=== PATIENT | male | born 1995 ===

== ENCOUNTER 2016-05-22 09:29 | Emergency (ER) | payer SELFPAY ==
[2016-05-22 09:30] VITALS: BMI 24.1
[2016-05-22 09:38] VITALS: BP 131/67; PULSE 57; RESP 18; TEMP 97.7; O2SAT 98
--- NOTE | 2016-05-22 10:07 | ED PDOC ---
HPI: General Adult Time Seen by Provider: 05/22/16 10:05 Chief Complaint (Nursing): Chest Pain Additional Complaint(s): 21 y/o M c no PMHx p/w R sided thoracic pain this morning when getting up from bed. Pain was sharp and severe, like a muscle spasm, worse with deep inspiration or movement. He lied back down, and when he got up again, he did not have any pain whatsoever but he decided to come to the ER. He denies any fever, rash, dyspnea, vomiting, hematuria, injury. Past Medical History Vital Signs: Last Vital Signs Temp 97.7 F 05/22/16 09:36 Pulse 57 L 05/22/16 09:36 Resp 18 05/22/16 09:36 BP 131/67 05/22/16 09:36 Pulse Ox 98 05/22/16 10:19 - Medical History PMH: Denies: Chronic Kidney Disease - Family History Family History: States: Unknown Family Hx - Home Medications Home Medications: Ambulatory Orders Medication Instructions Recorded Famotidine [Pepcid] 20 mg PO BID #28 tab 11/25/15 Amoxicillin/Clavulanate [Augmentin 1 tab PO BID #14 tab 04/17/16 875 MG-125 MG] Ibuprofen [Motrin] 600 mg PO Q6 PRN #15 tab 04/17/16 Naproxen [Naprosyn] 500 mg PO BID PRN #15 tablet 04/24/16 Famotidine [Pepcid] 1 tab PO BID #10 tab 04/26/16 Ondansetron ODT [Zofran ODT] 1 tab PO Q8 PRN #24 odt 04/26/16 Azithromycin [Zithromax] 250 mg PO DAILY 5 Days 05/01/16 Ibuprofen [Motrin] 400 mg PO Q6 #30 tab 05/15/16 - Allergies Allergies/Adverse Reactions: Allergies Allergy/AdvReac Type Severity Reaction Status Date / Time No Known Allergies Allergy Verified 04/26/16 11:16 Review of Systems ROS Statement: Except As Marked, All Systems Reviewed And Found Negative Constitutional: Negative for: Fever Respiratory: Negative for: Shortness of Breath Physical Exam - Physical Exam Comments: Constitutional: No acute distress. Head: Normocephalic. Atraumatic. Eyes: PERRL. EOMI. ENT: Moist mucous membranes. Neck: Supple. FROM Cardiovascular: Regular rate. Radial pulses 2+ bilaterally. Chest: No tenderness. Respiratory: Clear to auscultation bilaterally. GI: Soft. Nontender. Nondistended. No rebound or guarding. Back: No CVA tenderness. Musculoskeletal: No tenderness or swelling of extremities. Skin: No rash. Neurologic: Alert, no focal deficit. - ECG O2 Sat by Pulse Oximetry: 98 Medical Decision Making Medical Decision Making: Likely muscular spasm and no other signs or symptoms then or currently to suggest zoster, cholecystitis, pneumothorax, nephrolithiasis, PE. Will discharge home but instructed to return to ER for any worsening symptoms including rash, fever, vomiting, dyspnea, hematuria, or any other problem. Disposition - Clinical Impression Clinical Impression: Muscle spasm - Patient ED Disposition Is Patient to be Admitted: No - Disposition Disposition: Routine/Home Disposition Time: 10:06 Condition: STABLE Instructions: Muscle Spasm (ED) Forms: [facility] ED School/Work Excuse
== END 2016-05-22 10:11 | disposition home or self-care (01) ==
LOC: H.ER 09:29
DX: M62.838 Other muscle spasm (principal)

== ENCOUNTER 2016-08-17 21:58 | Emergency (ER) | payer SELFPAY ==
[2016-08-17 22:01] VITALS: BMI 26.6
[2016-08-17 22:03] VITALS: PULSE 72; RESP 16; TEMP 97.9; O2SAT 98
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
[2016-08-17 22:26] VITALS: BP 110/64
== END 2016-08-17 22:38 | disposition home or self-care (01) ==
LOC: H.ER 21:58
DX: M25.511 Pain in right shoulder (principal); M54.9 Dorsalgia, unspecified; V43.52XA Car driver injured in collision with other type car in traffic accident, initial encounter; Y92.410 Unspecified street and highway as the place of occurrence of the external cause

== ENCOUNTER 2016-11-15 05:05 | Emergency (ER) | payer SELFPAY ==
[2016-11-15 05:14] VITALS: BMI 27.4
[2016-11-15 05:17] VITALS: PULSE 60; RESP 16; TEMP 98.7; O2SAT 100
--- NOTE | 2016-11-15 05:21 | ED PDOC ---
Lower Extremity Pain/Injury Time Seen by Provider: 11/15/16 05:20 Chief Complaint (Nursing): Lower Extremity Problem/Injury Chief Complaint (Provider): right toe injury History Per: Patient (21 y/o male here with right toe injury that occurred yesterday when he dropped box on foot. States he noted ecchymosis yesterday that now resolved. Notes pain base of foot currently. Has h/o toe fx in this foot.) Past Medical History Reviewed: Historical Data, Nursing Documentation, Vital Signs Vital Signs: Last Vital Signs Temp 98.7 F 11/15/16 05:14 Pulse 60 11/15/16 05:14 Resp 16 11/15/16 05:14 BP Pulse Ox 100 11/15/16 05:14 - Medical History PMH: Denies: Chronic Kidney Disease - Family History Family History: States: Unknown Family Hx - Home Medications Home Medications: Ambulatory Orders Medication Instructions Recorded Famotidine [Pepcid] 20 mg PO BID #28 tab 11/25/15 Amoxicillin/Clavulanate [Augmentin 1 tab PO BID #14 tab 04/17/16 875 MG-125 MG] Ibuprofen [Motrin] 600 mg PO Q6 PRN #15 tab 04/17/16 Naproxen [Naprosyn] 500 mg PO BID PRN #15 tablet 04/24/16 Famotidine [Pepcid] 1 tab PO BID #10 tab 04/26/16 Ondansetron ODT [Zofran ODT] 1 tab PO Q8 PRN #24 odt 04/26/16 Azithromycin [Zithromax] 250 mg PO DAILY 5 Days 05/01/16 Ibuprofen [Motrin] 400 mg PO Q6 #30 tab 05/15/16 Naproxen [Naprosyn Tab] 1 tab PO Q8 PRN #21 tab 08/17/16 Cyclobenzaprine [Cyclobenzaprine 10 mg PO TID PRN #20 tab 08/27/16 HCl] Naproxen [Naprosyn] 500 mg PO BID #20 tab 08/27/16 Naproxen [Naprosyn Tab] 375 mg PO Q8 PRN #15 tab 11/15/16 - Allergies Allergies/Adverse Reactions: Allergies Allergy/AdvReac Type Severity Reaction Status Date / Time No Known Allergies Allergy Verified 11/15/16 05:14 Review of Systems ROS Statement: Except As Marked, All Systems Reviewed And Found Negative Musculoskeletal: Positive for: Foot Pain, Other (toe injury) Physical Exam - Reviewed Nursing Documentation Reviewed: Yes Vital Signs Reviewed: Yes - Physical Exam Appears: Positive for: Well, Non-toxic, No Acute Distress Head Exam: Positive for: ATRAUMATIC, NORMAL INSPECTION, NORMOCEPHALIC Skin: Positive for: Normal Color, Warm, DRY Eye Exam: Positive for: EOMI, Normal appearance, PERRL ENT: Positive for: Normal ENT Inspection Neck: Positive for: Normal, Painless ROM Cardiovascular/Chest: Positive for: Regular Rate, Rhythm Respiratory: Positive for: CNT, Normal Breath Sounds Gastrointestinal/Abdominal: Positive for: Normal Exam, Bowel Sounds, Soft Back: Positive for: Normal Inspection Extremity: Positive for: Normal ROM, Tenderness (right toe tenderness. No ecchymosis/swelling noted. Tender plantar surface of foot.) Neurologic/Psych: Positive for: Alert, Oriented - ECG O2 Sat by Pulse Oximetry: 100 - Progress ED Course And Treament: Motrin 600 mg x 1 dose Disposition - Clinical Impression Clinical Impression: Toe injury - Patient ED Disposition Is Patient to be Admitted: Transfer of Care - Disposition Referrals: Podiatry Clinic [Outside] Disposition: Transfer of Care Disposition Time: 06:06 Condition: FAIR Prescriptions: Naproxen [Naprosyn Tab] 375 mg PO Q8 PRN #15 tab PRN Reason: Pain, Moderate (4-7) Instructions: Plantar Fasciitis (ED), Contusion in Adults (ED) Forms: [employer] (Ugandan) Patient Signed Over To: Arash Sutton Handoff Comments: pending xry
[2016-11-15 05:23] VITALS: BP 124/65
--- NOTE | 2016-11-15 06:11 | ED PDOC ---
- ECG O2 Sat by Pulse Oximetry: 100 (RA) Pulse Ox Interpretation: Normal Medical Decision Making Medical Decision Making: Time: 0600 --Patient was signed out to provider. Pending Xray results. Time: 619 --Xray foot: negative --Upon provider reevaluation, patient is medically stable and requires no further treatment in the ED at this time. Patient will be discharged home. Counseling was provided and all questions were answered regarding diagnosis and need for follow up with PCP. There is agreement to discharge plan. Return if symptoms persist or worsen. Clinical Impression: Toe injury Scribe Attestation: Documented by Coral Ochoa, acting as a scribe for Arash Sutton MD. Provider Scribe Attestation: All medical record entries made by the Scribe were at my direction and personally dictated by me. I have reviewed the chart and agree that the record accurately reflects my personal performance of the history, physical exam, medical decision making, and the department course for this patient. I have also personally directed, reviewed, and agree with the discharge instructions and disposition. Disposition Counseled Patient/Family Regarding: Studies Performed, Diagnosis, Need For Followup - Clinical Impression Clinical Impression: Toe injury - POA Present On Arrival: None - Disposition Referrals: Podiatry Clinic [Outside] Disposition: Routine/Home Disposition Time: 07:00 Condition: FAIR Prescriptions: Naproxen [Naprosyn Tab] 375 mg PO Q8 PRN #15 tab PRN Reason: Pain, Moderate (4-7) Instructions: Plantar Fasciitis (ED), Contusion in Adults (ED) Forms: [employer] (Irish), [facility] ED School/Work Excuse
--- NOTE | 2016-11-15 08:56 | RAD ---
PROCEDURE: Radiographs of the right great toe. TECHNIQUE:: AP radiograph of the right foot, with oblique and lateral view of the right great toe. COMPARISON: None. FINDINGS: BONES: Normal. No fracture. JOINTS: Normal. SOFT TISSUES: Normal. OTHER FINDINGS: None. IMPRESSION: Normal right great toe radiographs.
== END 2016-11-15 07:05 | disposition home or self-care (01) ==
LOC: H.ER 05:05
DX: S99.921A Unspecified injury of right foot, initial encounter (principal); W20.8XXA Other cause of strike by thrown, projected or falling object, initial encounter